=== PATIENT | female | born 1950 | race Caucasian/White ===

== ENCOUNTER 2018-04-01 00:16 | Inpatient (IN) | payer OTHER, MEDICARE ==
[~2018-04-01] VITALS: Ht 154.9 cm; Wt 64.0 kg
[2018-04-01] MEDS ORDERED: NACL 0.9% 1,000 ML IV ONE (00:19)
[2018-04-01 00:20] VITALS: BP_SYST 103
[2018-04-01] MEDS ORDERED: KETOROLAC TROMETHAMINE 30 MG VIAL IVP ONE (00:30)
[2018-04-01 01:03] LABS: ANION GAP 9 (5-15); CHLORIDE 95 mmol/L (98-107); CREATININE 1.17 mg/dL (0.55-1.30); GLUCOSE 131 mg/dL (70-99); POTASSIUM 3.9 mmol/L (3.5-5.1); SODIUM SERUM 133 mmol/L (136-145); UREA NITROGEN, BLOOD 17 mg/dL (8-21)
[2018-04-01 01:08] LABS: INR 1.1 (0.8-1.2); PROTHROMBIN TIME 10.9 SECS (9.5-12.5)
[2018-04-01 01:10] LABS: ALANINE AMINOTRANSFERASE 33 U/L (12-78); ALBUMIN 2.5 g/dL (3.4-4.8); ALCOHOL, BLOOD < 3 mg/dL (<10); ASPARTATE AMINOTRANSFERASE 27 U/L (10-37); GFR AFRICAN AMERICAN 59 mL/min (>90); LIPASE 79 U/L (73-393); TOTAL BILIRUBIN 0.8 mg/dL (0.0-1.0)
[2018-04-01 01:41] LABS: HEMATOCRIT 35.4 % (36-48); HEMOGLOBIN 11.2 g/dL (12.0-16.0); MEAN CORPUSCULAR HEMOGLOBIN 27 pg (27-31); MEAN CORPUSCULAR HGB CONC 32 % (32-36); MEAN CORPUSCULAR VOLUME 86 fL (79.0-98.0); RED BLOOD CELL COUNT(AUTO) 4.14 MIL/uL (4.2-6.2); RED CELL DISTRIBUTION WIDTH 15.7 % (9.0-15.0); WHITE BLOOD COUNT (AUTO) 66.9 K/uL (4.8-10.8)
[2018-04-01 01:42] LABS: PLATELET COUNT (AUTO) 431 K/uL (130-430)
[2018-04-01 01:50] LABS: ATYPICAL LYMPHOCYTES % 3 % (0-0); BAND % (MANUAL) 4 % (0-6); BASOPHILS % (MANUAL) 0 % (0-2); EOSINOPHILS % (MANUAL) 0 % (0-7); LYMPHOCYTES % (MANUAL) 56 % (20-46); MONOCYTES % (MANUAL) 7 % (0-11)
[2018-04-01 01:51] LABS: METAMYELOCYTES % 1 % (0-0); MYELOCYTES % 1 % (0-0)
[2018-04-01] MEDS ORDERED: NS 1000 ML IV.SOLN IV ONE (02:00)
[2018-04-01] MEDS ORDERED: AMPICILLIN SODIUM/SULBACTAM NA 3 GM in NS 100 ML IV ONE (02:00)
[2018-04-01 02:23] LABS: BILIRUBIN,URINE NEGATIVE (NEGATIVE); BLOOD, URINE 2+ (NEGATIVE); CLARITY/URINE HAZY (CLEAR); COLOR,URINE YELLOW (YELLOW); GLUCOSE,URINE NEGATIVE (NEGATIVE); KETONES,URINE TRACE (NEGATIVE); LEUKOCYTE ESTERASE ,URINE NEGATIVE (NEGATIVE); NITRITE, URINE NEGATIVE (NEGATIVE); PROTEIN URINE TRACE (NEGATIVE); UROBILINOGEN,URINE 0.2 (0.2-1.0)
[2018-04-01 02:30] LABS: BACTERIA,URINE FEW /HPF (None Seen)
[2018-04-01 02:31] LABS: YEAST,URINE Few /HPF (None Seen)
[2018-04-01 02:32] LABS: BARBITURATE, URINE NEGATIVE (NEG <=200); BENZODIAZEPINE, URINE POSITIVE (NEG <=150); CANNABINOID, URINE NEGATIVE (NEG <=50); COCAINE, URINE NEGATIVE (NEG <=150); METHAMPHETAMINES SCREEN,URINE NEGATIVE (NEG <=500); OPIATE, URINE POSITIVE (NEG <=100); PHENCYCLIDINE SCREEN,URINE NEGATIVE (NEG <=25); UR TRICYCLIC ANTIDEPRESSANTS POSITIVE (NEG <=300); URINE AMPHETAMINE NEGATIVE (NEG <=500); URINE METHADONE NEGATIVE (NEG <=200); URINE OXYCODONE SCREEN NEGATIVE (NEG <=100); URINE PROPOXYPHENE SCREEN NEGATIVE (NEG <=300)
[2018-04-01 02:35] LABS: INR 1.1 (0.8-1.2); PROTHROMBIN TIME 10.9 SECS (9.5-12.5)
[2018-04-01] MEDS ORDERED: AMPICILLIN SODIUM/SULBACTAM NA 3 GM VIAL ONE (02:51)
[2018-04-01] MEDS ORDERED: VIS25 PO (07:28)
[2018-04-01] MEDS ORDERED: PROC5TAB12 PO (07:28)
[2018-04-01] MEDS ORDERED: LYR50 PO (07:28)
[2018-04-01] MEDS ORDERED: FEN12PAT TD (07:28)
[2018-04-01] MEDS ORDERED: CLON0.5T12 PO (07:31)
[2018-04-01] MEDS ORDERED: DULO60CA41 PO (07:31)
[2018-04-01] MEDS ORDERED: DEXL60CA4 PO (07:31)
[2018-04-01] MEDS ORDERED: TRIA0.252 PO (07:39)
[2018-04-01] MEDS ORDERED: ESTR1PAT7 TD (07:39)
[2018-04-01] MEDS ORDERED: BECL10.62 IH (07:39)
[2018-04-01] MEDS ORDERED: TRAM-350 PO (07:39)
[2018-04-01] MEDS ORDERED: LEVO150T8 PO (07:39)
[2018-04-01] MEDS ORDERED: BENI20 IM (07:39)
[2018-04-01] MEDS ORDERED: MG T1TAB3 PO (07:39)
[2018-04-01 09:41] VITALS: BP_SYST 129
[2018-04-01] MEDS ORDERED: IBRU140T PO (10:12)
[2018-04-01] MEDS ORDERED: CEFEPIME 1 GM in D5W 50 ML IV ONE (11:00)
[2018-04-01] MEDS ORDERED: IPRATROPIUM/ALBUTEROL SULFATE 3 ML AMPUL.NEB (DUONEB) INH PRN (11:30)
[2018-04-01] MEDS: MILK OF MAGNESIA 30 ML UDC PO PRN (11:41)
[2018-04-01] MEDS ORDERED: NON-FORMULARY MEDICATION (Dexlansoprazole (Dexilant) 60 MG) PO SCH (11:45)
[2018-04-01] MEDS ORDERED: guaiFENesin ER 600 MG TAB PO ONE (11:45)
[2018-04-01] MEDS ORDERED: DULoxetine HCL 30 MG CAPSULE.DR (CYMBALTA) PO ONE (11:45)
[2018-04-01] MEDS ORDERED: DICYCLOMINE HCL 20 MG/2 ML AMP IM SCH (11:45)
[2018-04-01] MEDS ORDERED: ACETAMINOPHEN PO SCH (11:45)
[2018-04-01] MEDS ORDERED: clonazePAM 0.5 MG TABLET PO ONE (11:45)
[2018-04-01] MEDS ORDERED: [UNRECOGNIZED DRUG - OTHER] PO SCH (11:45)
[2018-04-01] MEDS ORDERED: TRAMADOL HCL PO SCH (11:45)
[2018-04-01] MEDS ORDERED: fentaNYL 12 MCG/HR PATCH TD SCH (12:00)
[2018-04-01] MEDS ORDERED: PANTOPRAZOLE SODIUM 40 MG TAB PO ONE (12:00)
[2018-04-01] MEDS ORDERED: LEVOTHYROXINE SODIUM 0.15 MG TABLET PO ONE (12:00)
[2018-04-01] MEDS ORDERED: MAG-AL HYDROX/SIMETH 30 ML UDC PO PRN (12:15)
[2018-04-01 12:49] LABS: TOTAL IRON BIND. CAPACITY 213 ug/dL (250-450)
[2018-04-01 14:09] VITALS: BP_SYST 113
[2018-04-01 14:24] VITALS: BP_SYST 113
[2018-04-01] MEDS ORDERED: COMMUNICATION ORDER XX ONE (15:30)
[2018-04-01] MEDS: fentaNYL 25 MCG/HR PATCH TD SCH (15:42)
[2018-04-01] MEDS: AZITHROMYCIN 500 MG in NS 250 ML IV SCH (17:11)
[2018-04-01 18:07] VITALS: BP_SYST 113
[2018-04-01] MEDS: DICYCLOMINE HCL 10 MG CAPSULE PO PRN (18:10)
[2018-04-01 20:00] VITALS: BP_SYST 115
[2018-04-01] MEDS: CEFEPIME 1 GM in D5W 50 ML IV SCH (20:18)
[2018-04-01] MEDS: clonazePAM 0.5 MG TABLET PO SCH (20:19)
[2018-04-01] MEDS: ZOLPIDEM TARTRATE 5 MG TABLET PO SCH (20:19)
[2018-04-01] MEDS: IMIPRAMINE HCL 25 MG PO SCH (20:19)
[2018-04-01] MEDS: PREGABALIN 25 MG CAPSULE (LYRICA) PO SCH (20:19)
[2018-04-01] MEDS: guaiFENesin ER 600 MG TAB PO SCH (20:20)
[2018-04-01] MEDS ORDERED: TRIAZOLAM PO SCH (21:00)
[2018-04-02] VITALS: BP_SYST 120
[2018-04-02 01:30] VITALS: BP_SYST 129
[2018-04-02] MEDS: DICYCLOMINE HCL 10 MG CAPSULE PO PRN ×2 (01:30→16:23)
[2018-04-02] MEDS: PROMETHAZINE-DM 6.25 MG-15 MG/5 ML UDC PO PRN ×3 (01:30→10:46)
[2018-04-02] MEDS: LEVOTHYROXINE SODIUM 0.15 MG TABLET PO SCH (06:22)
[2018-04-02 07:40] LABS: CALCIUM 7.8 mg/dL (8.4-11.0); CREATININE 0.86 mg/dL (0.55-1.30); POTASSIUM 4.4 mmol/L (3.5-5.1)
[2018-04-02 08:00] VITALS: BP_SYST 117
[2018-04-02] MEDS: clonazePAM 0.5 MG TABLET PO SCH ×2 (08:54→23:12)
[2018-04-02] MEDS: PANTOPRAZOLE SODIUM 40 MG TAB PO SCH (08:54)
[2018-04-02] MEDS: CEFEPIME 1 GM in D5W 50 ML IV SCH ×2 (08:55→23:15)
[2018-04-02] MEDS: DULoxetine HCL 30 MG CAPSULE.DR (CYMBALTA) PO SCH (08:55)
[2018-04-02] MEDS: guaiFENesin ER 600 MG TAB PO SCH ×2 (08:55→23:08)
[2018-04-02] MEDS ORDERED: ESTRADIOL TD SCH (09:00)
[2018-04-02 09:08] LABS: HEMATOCRIT 31.4 % (36-48); HEMOGLOBIN 9.7 g/dL (12.0-16.0); MEAN CORPUSCULAR HEMOGLOBIN 27 pg (27-31); MEAN CORPUSCULAR HGB CONC 31 % (32-36); MEAN CORPUSCULAR VOLUME 86 fL (79.0-98.0); RED BLOOD CELL COUNT(AUTO) 3.66 MIL/uL (4.2-6.2)
[2018-04-02 09:09] LABS: PLATELET COUNT (AUTO) 372 K/uL (130-430); RED CELL DISTRIBUTION WIDTH 15.8 % (9.0-15.0)
[2018-04-02 09:11] LABS: WHITE BLOOD COUNT (AUTO) 48.8 K/uL (4.8-10.8)
[2018-04-02 10:13] LABS: BASOPHILS % (AUTO) 0.2 % (0.0-2.0); EOSINOPHILS % (AUTO) 0.1 % (0.0-4.0); LYMPHOCYTES # (AUTO) 30.6 K/uL (1.0-5.5); LYMPHOCYTES % (AUTO) 62.6 % (20.5-51.5); MONOCYTES % (AUTO) 4.3 % (1.7-9.3); NEUTROPHILS % (AUTO) 32.8 % (40.0-70.0)
[2018-04-02 10:14] LABS: BASOPHILS # (AUTO) 0.1 K/uL (0.0-0.2); EOSINOPHILS # (AUTO) 0.1 K/uL (0.0-0.4); MONOCYTES # (AUTO) 2.1 K/uL (0.0-1.0)
[2018-04-02] MEDS: AZITHROMYCIN 500 MG in NS 250 ML IV SCH (10:45)
[2018-04-02] MEDS: PROCHLORPERAZINE MALEATE 5 MG TABLET PO PRN ×2 (10:46→23:41)
[2018-04-02 12:00] VITALS: BP_SYST 106
[2018-04-02] MEDS: ACETAMINOPHEN 325 MG TABLET PO PRN (13:10)
[2018-04-02 16:00] VITALS: BP_SYST 102
[2018-04-02] MEDS: MICAFUNGIN SODIUM 100 MG in NS 100 ML IV SCH (16:23)
[2018-04-02] MEDS ORDERED: LOPERAMIDE HCL 2 MG CAPSULE PO PRN (17:15)
[2018-04-02] MEDS ORDERED: MULTIVITS,CA,MINERALS/IRON/FA 1 TABLET PO ONE (17:45)
[2018-04-02 20:00] VITALS: BP_SYST 135
[2018-04-02] MEDS: IPRATROPIUM/ALBUTEROL SULFATE 3 ML AMPUL.NEB (DUONEB) INH SCH (20:01)
[2018-04-02] MEDS: PREGABALIN 25 MG CAPSULE (LYRICA) PO SCH (23:08)
[2018-04-02] MEDS: IMIPRAMINE HCL 25 MG PO SCH (23:13)
[2018-04-02] MEDS: POTASSIUM CHLORIDE 20 MEQ/PKT PACKET PO SCH (23:14)
[2018-04-02] MEDS: ZOLPIDEM TARTRATE 5 MG TABLET PO SCH (23:14)
[2018-04-02] MEDS: FUROSEMIDE 20 MG/2 ML VIAL IVP SCH (23:22)
[2018-04-03 01:07] VITALS: BP_SYST 115
[2018-04-03] MEDS: SOD FERRIC GLUC COMPLEX/SUC 125 MG in NS 100 ML IV SCH ×2 (01:26→17:26)
[2018-04-03 06:22] LABS: FOLATE (FOLIC ACID) 11.8 ng/mL (>3.0)
[2018-04-03] MEDS: LEVOTHYROXINE SODIUM 0.15 MG TABLET PO SCH (06:42)
[2018-04-03 07:27] LABS: CALCIUM 7.9 mg/dL (8.4-11.0); CREATININE 0.83 mg/dL (0.55-1.30); POTASSIUM 4.3 mmol/L (3.5-5.1); TOTAL BILIRUBIN 0.4 mg/dL (0.0-1.0)
[2018-04-03] MEDS: IPRATROPIUM/ALBUTEROL SULFATE 3 ML AMPUL.NEB (DUONEB) INH SCH ×4 (07:47→19:50)
[2018-04-03 08:00] VITALS: BP_SYST 120
[2018-04-03 08:15] LABS: HEMOGLOBIN 9.2 g/dL (12.0-16.0); MEAN CORPUSCULAR HEMOGLOBIN 27 pg (27-31); MEAN CORPUSCULAR VOLUME 86 fL (79.0-98.0); RED BLOOD CELL COUNT(AUTO) 3.39 MIL/uL (4.2-6.2); WHITE BLOOD COUNT (AUTO) 43.8 K/uL (4.8-10.8)
[2018-04-03 08:16] LABS: MEAN CORPUSCULAR HGB CONC 32 % (32-36); PLATELET COUNT (AUTO) 361 K/uL (130-430); RED CELL DISTRIBUTION WIDTH 15.3 % (9.0-15.0)
[2018-04-03] MEDS: CEFEPIME 1 GM in D5W 50 ML IV SCH ×2 (09:31→21:00)
[2018-04-03] MEDS: POTASSIUM CHLORIDE 20 MEQ/PKT PACKET PO SCH (09:32)
[2018-04-03] MEDS: MULTIVITS,CA,MINERALS/IRON/FA 1 TABLET PO SCH ×2 (09:32→22:01)
[2018-04-03] MEDS: guaiFENesin ER 600 MG TAB PO SCH ×2 (09:32→22:00)
[2018-04-03] MEDS: PANTOPRAZOLE SODIUM 40 MG TAB PO SCH ×2 (09:32→22:02)
[2018-04-03] MEDS: DULoxetine HCL 30 MG CAPSULE.DR (CYMBALTA) PO SCH (09:32)
[2018-04-03] MEDS: clonazePAM 0.5 MG TABLET PO SCH ×2 (09:32→22:01)
[2018-04-03] MEDS: FUROSEMIDE 20 MG/2 ML VIAL IVP SCH (09:34)
[2018-04-03] MEDS: AZITHROMYCIN 500 MG in NS 250 ML IV SCH (10:29)
[2018-04-03 11:26] LABS: IMMUNOGLOBULIN G, SERUM 752 mg/dL (700-1600)
[2018-04-03 11:29] VITALS: BP_SYST 115
[2018-04-03 11:52] LABS: BASOPHILS # (AUTO) 0.1 K/uL (0.0-0.2); BASOPHILS % (AUTO) 0.2 % (0.0-2.0); EOSINOPHILS # (AUTO) 0.1 K/uL (0.0-0.4); EOSINOPHILS % (AUTO) 0.2 % (0.0-4.0); LYMPHOCYTES # (AUTO) 25.8 K/uL (1.0-5.5); LYMPHOCYTES % (AUTO) 58.8 % (20.5-51.5); MONOCYTES # (AUTO) 2.2 K/uL (0.0-1.0); MONOCYTES % (AUTO) 5.1 % (1.7-9.3); NEUTROPHILS # (AUTO) 15.6 K/uL (1.8-7.7); NEUTROPHILS % (AUTO) 35.7 % (40.0-70.0)
[2018-04-03] MEDS: MICAFUNGIN SODIUM 100 MG in NS 100 ML IV SCH (13:00)
[2018-04-03 14:05] LABS: BF APPEARANCE UNSPUN HAZY (CLEAR); BODY FLUID COLOR YELLOW (LT YELLOW); BODY FLUID SOURCE/ TYPE PLEURAL; BODY FLUID TOTAL VOLUME 650 mL; SOURCE/TYPE ,BODY FLUID THORACENTESIS
[2018-04-03 15:35] VITALS: BP_SYST 117
[2018-04-03 16:14] LABS: LYMPHOCYTES, BODY FLUID 51 %; MONOCYTES,BODY FLUID 13 %; NEUTROPHIL, BODY FLUID 35 %; RBC, BODY FLUID 788 /uL; WBC, BODY FLUID 124 /uL
[2018-04-03] MEDS ORDERED: MAG-AL HYDROX/SIMETH 30 ML UDC PO PRN (18:00)
[2018-04-03 20:00] VITALS: BP_SYST 115
[2018-04-03] MEDS: IMIPRAMINE HCL 25 MG PO SCH (22:00)
[2018-04-03] MEDS: PREGABALIN 25 MG CAPSULE (LYRICA) PO SCH (22:00)
[2018-04-03] MEDS: ZOLPIDEM TARTRATE 5 MG TABLET PO SCH (22:03)
[2018-04-03] MEDS: ACETAMINOPHEN 325 MG TABLET PO PRN (22:06)
[2018-04-03 22:11] LABS: BODY FLUID GLUCOSE 140 mg/dL
[2018-04-03 23:42] VITALS: BP_SYST 110
[2018-04-04] MEDS: LEVOTHYROXINE SODIUM 0.15 MG TABLET PO SCH (06:43)
[2018-04-04] MEDS: IPRATROPIUM/ALBUTEROL SULFATE 3 ML AMPUL.NEB (DUONEB) INH SCH ×4 (07:11→20:23)
[2018-04-04 07:58] LABS: CALCIUM 8.1 mg/dL (8.4-11.0); CREATININE 0.72 mg/dL (0.55-1.30); POTASSIUM 4.9 mmol/L (3.5-5.1)
[2018-04-04 08:04] VITALS: BP_SYST 105
[2018-04-04 08:12] LABS: ALBUMIN 1.8 g/dL (3.4-4.8); TOTAL BILIRUBIN 0.4 mg/dL (0.0-1.0)
[2018-04-04 08:51] LABS: HEMATOCRIT 28.5 % (36-48); HEMOGLOBIN 9.2 g/dL (12.0-16.0); MEAN CORPUSCULAR HEMOGLOBIN 28 pg (27-31); MEAN CORPUSCULAR HGB CONC 32 % (32-36); MEAN CORPUSCULAR VOLUME 87 fL (79.0-98.0); PLATELET COUNT (AUTO) 336 K/uL (130-430); RED BLOOD CELL COUNT(AUTO) 3.29 MIL/uL (4.2-6.2); RED CELL DISTRIBUTION WIDTH 15.6 % (9.0-15.0)
[2018-04-04 08:53] LABS: WHITE BLOOD COUNT (AUTO) 37.1 K/uL (4.8-10.8)
[2018-04-04] MEDS: DULoxetine HCL 30 MG CAPSULE.DR (CYMBALTA) PO SCH (09:00)
[2018-04-04] MEDS ORDERED: BARIUM SULFATE 135 ML SUSP.RECON (E-Z-HD) PO ONE (09:14)
[2018-04-04] MEDS: AZITHROMYCIN 500 MG in NS 250 ML IV SCH (10:00)
[2018-04-04 10:41] LABS: BASOPHILS % (MANUAL) 0 % (0-2); EOSINOPHILS % (MANUAL) 0 % (0-7); LYMPHOCYTES % (MANUAL) 76 % (20-46); MONOCYTES % (MANUAL) 1 % (0-11)
[2018-04-04 11:09] VITALS: BP_SYST 124
[2018-04-04 13:09] VITALS: BP_SYST 124
[2018-04-04] MEDS: fentaNYL 25 MCG/HR PATCH TD SCH (15:07)
[2018-04-04] MEDS: MICAFUNGIN SODIUM 100 MG in NS 100 ML IV SCH (15:47)
[2018-04-04] MEDS: ACETAMINOPHEN 325 MG TABLET PO PRN (16:20)
[2018-04-04 16:57] VITALS: BP_SYST 123
[2018-04-04] MEDS: SOD FERRIC GLUC COMPLEX/SUC 125 MG in NS 100 ML IV SCH (18:41)
[2018-04-04 19:30] VITALS: BP_SYST 117
[2018-04-04] MEDS: MULTIVITS,CA,MINERALS/IRON/FA 1 TABLET PO SCH (20:20)
[2018-04-04] MEDS: PREGABALIN 25 MG CAPSULE (LYRICA) PO SCH (20:20)
[2018-04-04] MEDS: PANTOPRAZOLE SODIUM 40 MG TAB PO SCH (20:21)
[2018-04-04] MEDS: clonazePAM 0.5 MG TABLET PO SCH (20:21)
[2018-04-04] MEDS: IMIPRAMINE HCL 25 MG PO SCH (20:21)
[2018-04-04] MEDS: guaiFENesin ER 600 MG TAB PO SCH (20:21)
[2018-04-04] MEDS: ZOLPIDEM TARTRATE 5 MG TABLET PO SCH (20:21)
[2018-04-04] MEDS: CEFEPIME 1 GM in D5W 50 ML IV SCH (20:21)
[2018-04-04 23:05] VITALS: BP_SYST 116
[2018-04-05] MEDS: LEVOTHYROXINE SODIUM 0.15 MG TABLET PO SCH (06:12)
[2018-04-05] MEDS: IPRATROPIUM/ALBUTEROL SULFATE 3 ML AMPUL.NEB (DUONEB) INH SCH ×4 (07:17→20:11)
[2018-04-05 08:00] VITALS: BP_SYST 114
[2018-04-05] MEDS: guaiFENesin ER 600 MG TAB PO SCH ×2 (10:09→20:50)
[2018-04-05] MEDS: clonazePAM 0.5 MG TABLET PO SCH ×2 (10:09→20:49)
[2018-04-05] MEDS: DULoxetine HCL 30 MG CAPSULE.DR (CYMBALTA) PO SCH (10:09)
[2018-04-05] MEDS: PANTOPRAZOLE SODIUM 40 MG TAB PO SCH ×2 (10:10→20:49)
[2018-04-05] MEDS: MILK OF MAGNESIA 30 ML UDC PO PRN (10:10)
[2018-04-05] MEDS: ACETAMINOPHEN 325 MG TABLET PO PRN ×3 (10:11→21:10)
[2018-04-05] MEDS: MULTIVITS,CA,MINERALS/IRON/FA 1 TABLET PO SCH ×2 (10:11→20:48)
[2018-04-05] MEDS: CEFEPIME 1 GM in D5W 50 ML IV SCH ×2 (10:13→20:56)
[2018-04-05] MEDS ORDERED: MAGNESIUM OXIDE 400 MG TABLET PO ONE (11:45)
[2018-04-05] MEDS ORDERED: CHOLECALCIFEROL (VITAMIN D3) 2,000 UNIT TABLET PO ONE (11:45)
[2018-04-05 12:02] VITALS: BP_SYST 114
[2018-04-05] MEDS: AZITHROMYCIN 500 MG in NS 250 ML IV SCH (12:22)
[2018-04-05 12:41] LABS: CALCIUM 8.5 mg/dL (8.4-11.0); CREATININE 0.7 mg/dL (0.55-1.30); POTASSIUM 4.3 mmol/L (3.5-5.1)
[2018-04-05 12:43] LABS: PROTHROMBIN TIME 10.3 SECS (9.5-12.5)
[2018-04-05 12:46] LABS: ALBUMIN 1.9 g/dL (3.4-4.8); TOTAL BILIRUBIN 0.3 mg/dL (0.0-1.0)
[2018-04-05 13:31] LABS: HEMATOCRIT 30.1 % (36-48); HEMOGLOBIN 9.5 g/dL (12.0-16.0); MEAN CORPUSCULAR HEMOGLOBIN 27 pg (27-31); MEAN CORPUSCULAR HGB CONC 32 % (32-36); MEAN CORPUSCULAR VOLUME 87 fL (79.0-98.0); PLATELET COUNT (AUTO) 398 K/uL (130-430); RED BLOOD CELL COUNT(AUTO) 3.48 MIL/uL (4.2-6.2); RED CELL DISTRIBUTION WIDTH 15.7 % (9.0-15.0)
[2018-04-05 14:00] LABS: BASOPHILS % (MANUAL) 0 % (0-2); EOSINOPHILS % (MANUAL) 0 % (0-7); LYMPHOCYTES % (MANUAL) 47 % (20-46); METAMYELOCYTES % 1 % (0-0); MONOCYTES % (MANUAL) 7 % (0-11); MYELOCYTES % 1 % (0-0)
[2018-04-05] MEDS: MICAFUNGIN SODIUM 100 MG in NS 100 ML IV SCH (15:01)
[2018-04-05 16:02] VITALS: BP_SYST 116
[2018-04-05] MEDS ORDERED: ENOXAPARIN SODIUM 60 MG/0.6 ML SYRINGE SUBCUT ONE (17:30)
[2018-04-05 20:00] VITALS: BP_SYST 97
[2018-04-05] MEDS: ZOLPIDEM TARTRATE 5 MG TABLET PO SCH (20:48)
[2018-04-05] MEDS: PREGABALIN 25 MG CAPSULE (LYRICA) PO SCH (20:49)
[2018-04-05] MEDS: IMIPRAMINE HCL 25 MG PO SCH (20:50)
[2018-04-05] MEDS ORDERED: PREGABALIN 25 MG CAPSULE (LYRICA) ONE (21:03)
[2018-04-05 21:11] LABS: MYCOPLASMA PNEUMONIAE IgM <770 U/mL (0-769)
[2018-04-06 00:42] VITALS: BP_SYST 122
[2018-04-06] MEDS: LEVOTHYROXINE SODIUM 0.15 MG TABLET PO SCH (06:04)
[2018-04-06 07:17] LABS: CALCIUM 8.8 mg/dL (8.4-11.0); CREATININE 0.69 mg/dL (0.55-1.30); POTASSIUM 4.3 mmol/L (3.5-5.1)
[2018-04-06] MEDS: IPRATROPIUM/ALBUTEROL SULFATE 3 ML AMPUL.NEB (DUONEB) INH SCH ×2 (07:28→20:02)
[2018-04-06 08:09] VITALS: BP_SYST 133
[2018-04-06 08:11] LABS: RED BLOOD CELL COUNT(AUTO) 3.67 MIL/uL (4.2-6.2); WHITE BLOOD COUNT (AUTO) 32.6 K/uL (4.8-10.8)
[2018-04-06 08:13] LABS: HEMATOCRIT 31.7 % (36-48); HEMOGLOBIN 10.1 g/dL (12.0-16.0); MEAN CORPUSCULAR HEMOGLOBIN 28 pg (27-31); MEAN CORPUSCULAR HGB CONC 32 % (32-36); MEAN CORPUSCULAR VOLUME 86 fL (79.0-98.0); PLATELET COUNT (AUTO) 470 K/uL (130-430); RED CELL DISTRIBUTION WIDTH 15.6 % (9.0-15.0)
[2018-04-06] MEDS: MULTIVITS,CA,MINERALS/IRON/FA 1 TABLET PO SCH ×2 (08:44→21:24)
[2018-04-06] MEDS: PANTOPRAZOLE SODIUM 40 MG TAB PO SCH ×2 (08:44→21:25)
[2018-04-06] MEDS: DULoxetine HCL 30 MG CAPSULE.DR (CYMBALTA) PO SCH (08:44)
[2018-04-06] MEDS: clonazePAM 0.5 MG TABLET PO SCH ×2 (08:44→21:24)
[2018-04-06] MEDS: CEFEPIME 1 GM in D5W 50 ML IV SCH ×2 (08:44→21:26)
[2018-04-06] MEDS: MAGNESIUM OXIDE 400 MG TABLET PO SCH (08:44)
[2018-04-06] MEDS: CHOLECALCIFEROL (VITAMIN D3) 2,000 UNIT TABLET PO SCH (08:45)
[2018-04-06] MEDS: guaiFENesin ER 600 MG TAB PO SCH ×2 (08:45→21:24)
[2018-04-06] MEDS: ENOXAPARIN SODIUM 60 MG/0.6 ML SYRINGE SUBCUT SCH ×2 (08:46→21:28)
[2018-04-06 11:00] LABS: LYMPHOCYTES % (MANUAL) 56 % (20-46)
[2018-04-06 11:01] LABS: BASOPHILS % (MANUAL) 0 % (0-2); EOSINOPHILS % (MANUAL) 2 % (0-7); MONOCYTES % (MANUAL) 6 % (0-11)
[2018-04-06 11:37] VITALS: BP_SYST 114
[2018-04-06] MEDS: MICAFUNGIN SODIUM 100 MG in NS 100 ML IV SCH (13:19)
[2018-04-06] MEDS: ACETAMINOPHEN 325 MG TABLET PO PRN ×2 (15:37→21:25)
[2018-04-06 16:09] VITALS: BP_SYST 118
[2018-04-06] MEDS ORDERED: VANCOMYCIN HCL 1,000 MG in NS 250 ML IV SCH (18:00)
[2018-04-06 20:00] VITALS: BP_SYST 113
[2018-04-06] MEDS: PREGABALIN 25 MG CAPSULE (LYRICA) PO SCH (21:24)
[2018-04-06] MEDS: IMIPRAMINE HCL 25 MG PO SCH (21:24)
[2018-04-06] MEDS: ZOLPIDEM TARTRATE 5 MG TABLET PO SCH (21:25)
[2018-04-07 00:17] VITALS: BP_SYST 118
[2018-04-07] MEDS: LEVOTHYROXINE SODIUM 0.15 MG TABLET PO SCH (06:04)
[2018-04-07 08:09] VITALS: BP_SYST 131
[2018-04-07] MEDS: DULoxetine HCL 30 MG CAPSULE.DR (CYMBALTA) PO SCH (08:50)
[2018-04-07] MEDS: clonazePAM 0.5 MG TABLET PO SCH (08:50)
[2018-04-07] MEDS: CEFEPIME 1 GM in D5W 50 ML IV SCH (08:50)
[2018-04-07] MEDS: CHOLECALCIFEROL (VITAMIN D3) 2,000 UNIT TABLET PO SCH (08:50)
[2018-04-07] MEDS: guaiFENesin ER 600 MG TAB PO SCH (08:50)
[2018-04-07] MEDS: MAGNESIUM OXIDE 400 MG TABLET PO SCH (08:50)
[2018-04-07] MEDS: MULTIVITS,CA,MINERALS/IRON/FA 1 TABLET PO SCH (08:51)
[2018-04-07] MEDS: PANTOPRAZOLE SODIUM 40 MG TAB PO SCH (08:51)
[2018-04-07] MEDS: ENOXAPARIN SODIUM 60 MG/0.6 ML SYRINGE SUBCUT SCH (08:52)
[2018-04-07] MEDS: ACETAMINOPHEN 325 MG TABLET PO PRN (08:57)
[2018-04-07 11:20] VITALS: BP_SYST 131
[2018-04-07 11:26] VITALS: BP_SYST 136
[2018-04-07] MEDS ORDERED: DOXY-168 PO (13:37)
[2018-04-07] MEDS ORDERED: DIF100 PO (13:38)
[2018-04-07] MEDS ORDERED: MULT-1100 PO (13:39)
[2018-04-07] MEDS ORDERED: APIX5TAB PO (13:39)
[2018-04-07] MEDS ORDERED: IPRA3AMP9 INH (13:42)
[2018-04-07] MEDS ORDERED: ZOLP5TAB2 PO (13:43)
[2018-04-09 11:36] LABS: IMMUNOGLOBULIN M, SERUM 16 mg/dL (26-217)
[2018-04-09 12:05] LABS: COCCIDIOIDES AB COMPLEMENT FIX Negative (NEGATIVE)
== END 2018-04-07 14:15 | disposition home health service (06) | DRG 871 ==
LOC: SED 00:16 → STU 04:15
PROVIDERS: ADMIT Internal Medicine; ATTEND Internal Medicine
PROC: 0W9B3ZZ Drainage of Left Pleural Cavity, Percutaneous Approach (ICD-10-PCS; principal; 2018-04-03)
DX: A41.9 Sepsis, unspecified organism (principal); J18.9 Pneumonia, unspecified organism; E43 Unspecified severe protein-calorie malnutrition; J90 Pleural effusion, not elsewhere classified; C91.10 Chronic lymphocytic leukemia of B-cell type not having achieved remission; I31.3 Pericardial effusion (noninflammatory); I82.621 Acute embolism and thrombosis of deep veins of right upper extremity; D68.59 Other primary thrombophilia; J91.8 Pleural effusion in other conditions classified elsewhere; D64.9 Anemia, unspecified; D89.9 Disorder involving the immune mechanism, unspecified; E06.3 Autoimmune thyroiditis; J32.9 Chronic sinusitis, unspecified; J45.909 Unspecified asthma, uncomplicated; K21.9 Gastro-esophageal reflux disease without esophagitis; G43.909 Migraine, unspecified, not intractable, without status migrainosus; G62.9 Polyneuropathy, unspecified; H01.003 Unspecified blepharitis right eye, unspecified eyelid; H01.006 Unspecified blepharitis left eye, unspecified eyelid; K29.50 Unspecified chronic gastritis without bleeding; M47.812 Spondylosis without myelopathy or radiculopathy, cervical region; K64.9 Unspecified hemorrhoids; M54.31 Sciatica, right side; M54.32 Sciatica, left side; I95.9 Hypotension, unspecified; F41.9 Anxiety disorder, unspecified; R13.10 Dysphagia, unspecified; F32.9 Major depressive disorder, single episode, unspecified; G89.4 Chronic pain syndrome; M79.7 Fibromyalgia; W01.190A Fall on same level from slipping, tripping and stumbling with subsequent striking against furniture, initial encounter; Y93.89 Activity, other specified; Y92.89 Other specified places as the place of occurrence of the external cause; Y99.8 Other external cause status; Z79.01 Long term (current) use of anticoagulants; Z88.8 Allergy status to other drugs, medicaments and biological substances; Z82.49 Family history of ischemic heart disease and other diseases of the circulatory system; Z90.710 Acquired absence of both cervix and uterus; Z68.26 Body mass index [BMI] 26.0-26.9, adult
CPT/HCPCS: 32555; 36415; 70450-TC; 71045; 71250-TC; 74220-TC; 80048; 80053; 80307; 81000-TC; 82607; 82728; 82746; 82784; 82947-TC; 83010; 83540-TC; 83550-TC; 83605; 83615-TC; 83690-TC; 84157-TC; 84484; 85007; 85025; 85027; 85610-TC; 85730-TC; 86635; 86710; 86738; 86880-TC; 86886; 87040-TC; 87045-TC; 87046; 87070-TC; 87101; 87116; 87305; 87449; 88108; 88305; 89051-TC; 89055; 89060-TC; 93005; 93306; 93971; 94640; 94760; 96361; 96365; 96375; 97110-GP; 97116-GP; 97530-GP; 99285; C1729; G0378; G0482; J0295; J0456; J0692; J1650; J1885; J1940; J2248; J2916; J3370; J7050; J7060; J7620; Q0164